=== PATIENT | male | born 1985 | race African-American/Black ===

== ENCOUNTER 2023-03-31 14:35 | Inpatient (IN) | payer OTHER ==
[2023-03-31 15:02] VITALS: BMI 26.4
[2023-03-31] MEDS ORDERED: BISMUTH SUBSALICYLATE 524 MG/30 ML PO PRN (16:10)
[2023-03-31] MEDS ORDERED: DICYCLOMINE HCL 10 MG CAPSULE PO PRN (16:10)
[2023-03-31] MEDS ORDERED: MAGNESIUM HYDROX 2400MG/30ML ORAL SUSPENSION 30 ML CUP PO PRN (16:10)
[2023-03-31] MEDS ORDERED: IBUPROFEN 600 MG TABLET (FP) PO PRN (16:10)
[2023-03-31] MEDS ORDERED: BENZOCAINE/MENTHOL (CHLORASEPTIC ) LOZENGE MM PRN (16:10)
[2023-03-31] MEDS ORDERED: POLYETHYLENE GLYCOL (HEALTHYLAX) 3350 17 GM PACKET PO PRN (16:10)
[2023-03-31] MEDS ORDERED: ONDANSETRON *ODT* 4 MG TABLET SL PRN (16:10)
[2023-03-31] MEDS ORDERED: guaiFENesin 600 MG TABLET.ER (FP) PO PRN (16:10)
[2023-03-31] MEDS ORDERED: ACETAMINOPHEN 325 MG TABLET (FP) PO PRN (16:10)
[2023-03-31] MEDS ORDERED: MAG HYDROX/AL HYDROX/SIMETH 30 ML UNIT-DOSE CUP PO PRN (16:10)
[2023-03-31] MEDS ORDERED: NICOTINE POLACRILEX 2 MG GUM BUC PRN (16:10)
[2023-03-31] MEDS ORDERED: NALOXONE HCL 0.4 MG/ML VIAL IM PRN (16:10)
[2023-03-31] MEDS ORDERED: IBUPROFEN 400 MG TABLET (FP) PO PRN (16:10)
[2023-03-31] MEDS ORDERED: NALOXONE HCL (KLOXXADO) 8 MG SPRAY NS PRN (16:10)
[2023-03-31] MEDS ORDERED: BENZONATATE 200 MG CAPSULE PO PRN (16:10)
[2023-03-31] MEDS ORDERED: LOPERAMIDE HCL 2 MG CAPSULE PO PRN (16:10)
[2023-03-31] MEDS ORDERED: cloNIDine HCL 0.1 MG TABLET PO ONE (18:18)
[2023-03-31] MEDS: hydrOXYzine PAMOATE 25 MG CAPSULE (FP) PO PRN (22:12)
[2023-03-31] MEDS: THIAMINE HCL 100 MG TABLET (FP) PO SCH (22:12)
[2023-03-31] MEDS: MELATONIN 5 MG TABLETS PO SCH (22:12)
[2023-03-31] MEDS: METHOCARBAMOL 500 MG TABLET PO PRN (22:13)
[2023-04-01] MEDS: cloNIDine HCL 0.1 MG TABLET PO SCH ×2 (06:09→17:29)
[2023-04-01] MEDS: NICOTINE 14 MG/24 HOURS TOPICAL PATCH TD SCH (09:38)
[2023-04-01] MEDS: PRENATAL VITAMINS W/ FOLIC ACID TABLET (FP) PO SCH (09:39)
[2023-04-01] MEDS: amLODIPine BESYLATE 10 MG TABLET (FP) PO SCH (09:39)
[2023-04-01 11:38] LABS: CHLORIDE 108 mmol/L (98-107); POTASSIUM 4.1 mmol/L (3.5-5.1); SODIUM 138 mmol/L (136-145)
[2023-04-01 11:42] LABS: ALBUMIN 3.4 g/dl (3.4-5.0); ANION GAP 4 mmol/L (4-13); BLOOD UREA NITROGEN 13.5 mg/dL (7-18); CO2 27 mmol/L (21-32)
[2023-04-01 11:45] LABS: GLUCOSE,RANDOM 86 mg/dL (74-106); SGOT/AST 18 U/L (15-37); SGPT/ALT 26 U/L (13-61)
[2023-04-01 11:46] LABS: BILIRUBIN,TOTAL 0.4 mg/dL (0.2-1)
[2023-04-01 11:48] LABS: TOT PROT 7.2 g/dl (6.4-8.2)
[2023-04-01 11:49] LABS: ALK PHOS 40 U/L (45-117)
[2023-04-01 12:17] LABS: HEMATOCRIT 38.9 % (35.4-49); HEMOGLOBIN 13.1 GM/dL (11.7-16.9); MCH 28.5 pg (25.7-33.7); MCHC 33.8 g/dl (32.0-35.9); MEAN CELL VOLUME 84.3 fl (80-96); MEAN PLT VOLUME 9.5 fl (7.5-11.1); PLATELET COUNT 281 10^3/uL (134-434); RBC 4.61 M/mm3 (4.00-5.60); RDW 16.1 % (11.9-15.9); WHITE BLOOD COUNT 8.4 K/mm3 (4.0-10.0)
[2023-04-01] MEDS: MELATONIN 5 MG TABLETS PO SCH (22:15)
[2023-04-01] MEDS: BENZTROPINE MESYLATE 1 MG TABLET PO SCH (22:15)
[2023-04-01] MEDS: METHOCARBAMOL 500 MG TABLET PO PRN (22:17)
[2023-04-01] MEDS: ATORVASTATIN CA 10 MG TABLET (FP) PO SCH (22:17)
[2023-04-01] MEDS: QUEtiapine FUMARATE 100 MG TABLET (FP) PO SCH (22:17)
[2023-04-01] MEDS: hydrOXYzine PAMOATE 25 MG CAPSULE (FP) PO PRN (22:17)
[2023-04-01] MEDS: THIAMINE HCL 100 MG TABLET (FP) PO SCH (22:17)
[2023-04-02] MEDS: cloNIDine HCL 0.1 MG TABLET PO SCH ×2 (06:04→17:37)
[2023-04-02] MEDS: amLODIPine BESYLATE 10 MG TABLET (FP) PO SCH (10:07)
[2023-04-02] MEDS: CHOLECALCIFEROL (VIT D3) 1,000 UNIT (25 MCG) TABLET PO SCH (10:07)
[2023-04-02] MEDS: QUEtiapine FUMARATE 100 MG TABLET (FP) PO SCH ×2 (10:07→22:09)
[2023-04-02] MEDS: BENZTROPINE MESYLATE 1 MG TABLET PO SCH ×2 (10:07→22:09)
[2023-04-02] MEDS: PRENATAL VITAMINS W/ FOLIC ACID TABLET (FP) PO SCH (10:07)
[2023-04-02] MEDS: NICOTINE 14 MG/24 HOURS TOPICAL PATCH TD SCH (10:07)
[2023-04-02] MEDS: SERTRALINE HCL 50 MG TABLET (FP) PO SCH (10:08)
[2023-04-02] MEDS: MELATONIN 5 MG TABLETS PO SCH (22:09)
[2023-04-02] MEDS: ATORVASTATIN CA 10 MG TABLET (FP) PO SCH (22:09)
[2023-04-02] MEDS: THIAMINE HCL 100 MG TABLET (FP) PO SCH (22:09)
[2023-04-03] MEDS: cloNIDine HCL 0.1 MG TABLET PO SCH (05:22)
[2023-04-03 05:50] VITALS: RESP 17
[2023-04-03] MEDS: PRENATAL VITAMINS W/ FOLIC ACID TABLET (FP) PO SCH (10:09)
[2023-04-03] MEDS: amLODIPine BESYLATE 10 MG TABLET (FP) PO SCH (10:10)
[2023-04-03] MEDS: BENZTROPINE MESYLATE 1 MG TABLET PO SCH (10:10)
[2023-04-03] MEDS: hydrOXYzine PAMOATE 25 MG CAPSULE (FP) PO PRN (10:11)
[2023-04-03] MEDS: METHOCARBAMOL 500 MG TABLET PO PRN (10:11)
[2023-04-03] MEDS: SERTRALINE HCL 50 MG TABLET (FP) PO SCH (10:11)
[2023-04-03] MEDS: QUEtiapine FUMARATE 100 MG TABLET (FP) PO SCH (10:12)
[2023-04-03] MEDS: NICOTINE 14 MG/24 HOURS TOPICAL PATCH TD SCH (10:12)
[2023-04-03] MEDS: CHOLECALCIFEROL (VIT D3) 1,000 UNIT (25 MCG) TABLET PO SCH (10:14)
[2023-04-03 14:00] VITALS: BP 134/100; PULSE 89; TEMP 98.2
== END 2023-04-03 14:33 | disposition other institution (70) | DRG 775 ==
LOC: YASAS 14:35 → Y3N 16:37
PROVIDERS: ADMIT Allergy & Immunology; ATTEND Allergy & Immunology
PROC: HZ2ZZZZ Detoxification Services for Substance Abuse Treatment (ICD-10-PCS; principal; 2023-03-31)
DX: F10.20 Alcohol dependence, uncomplicated (principal); F12.20 Cannabis dependence, uncomplicated; F17.210 Nicotine dependence, cigarettes, uncomplicated; F20.9 Schizophrenia, unspecified; E78.2 Mixed hyperlipidemia; I10 Essential (primary) hypertension; Z28.310 Unvaccinated for COVID-19; Z28.9 Immunization not carried out for unspecified reason
CPT/HCPCS: 36415; 80053; 80307; 85027; 86780; 87635; 93005; 93010

== ENCOUNTER 2023-04-03 14:44 | Inpatient (IN) | payer OTHER ==
[2023-04-03] MEDS ORDERED: NALOXONE HCL 0.4 MG/ML VIAL IVPUSH PRN (14:59)
[2023-04-03] MEDS ORDERED: IBUPROFEN 400 MG TABLET (FP) PO PRN (14:59)
[2023-04-03] MEDS ORDERED: AMMONIUM LACTATE 12% LOTION 225 GM BOTTLE TP PRN (14:59)
[2023-04-03] MEDS ORDERED: METHOCARBAMOL 500 MG TABLET PO PRN (14:59)
[2023-04-03] MEDS ORDERED: MAGNESIUM HYDROX 2400MG/30ML ORAL SUSPENSION 30 ML CUP PO PRN (14:59)
[2023-04-03] MEDS ORDERED: LOPERAMIDE HCL 2 MG CAPSULE PO PRN (14:59)
[2023-04-03] MEDS ORDERED: NALOXONE HCL (KLOXXADO) 8 MG SPRAY NS PRN (14:59)
[2023-04-03] MEDS ORDERED: BENZOCAINE/MENTHOL (CHLORASEPTIC ) LOZENGE MM PRN (14:59)
[2023-04-03] MEDS ORDERED: IBUPROFEN 600 MG TABLET (FP) PO PRN (14:59)
[2023-04-03] MEDS ORDERED: MAG HYDROX/AL HYDROX/SIMETH 30 ML UNIT-DOSE CUP PO PRN (14:59)
[2023-04-03] MEDS ORDERED: NICOTINE POLACRILEX 4 MG GUM BUC PRN (14:59)
[2023-04-03] MEDS ORDERED: ACETAMINOPHEN 325 MG TABLET (FP) PO PRN (14:59)
[2023-04-03] MEDS ORDERED: POLYETHYLENE GLYCOL (HEALTHYLAX) 3350 17 GM PACKET PO PRN (14:59)
[2023-04-03] MEDS ORDERED: guaiFENesin 600 MG TABLET.ER (FP) PO PRN (14:59)
[2023-04-03] MEDS ORDERED: BENZONATATE 200 MG CAPSULE PO PRN (14:59)
[2023-04-03] MEDS: TUBERCULIN PPD 5 TU/0.1ML VIAL ID ONE (17:03)
[2023-04-03] MEDS: THIAMINE HCL 100 MG TABLET (FP) PO SCH (21:15)
[2023-04-03] MEDS: MELATONIN 5 MG TABLETS PO SCH (21:15)
[2023-04-04] MEDS: hydrOXYzine PAMOATE 25 MG CAPSULE (FP) PO PRN (06:09)
[2023-04-04] MEDS: ATORVASTATIN CA 10 MG TABLET (FP) PO SCH (10:07)
[2023-04-04] MEDS: PRENATAL VITAMINS W/ FOLIC ACID TABLET (FP) PO SCH (10:07)
[2023-04-04] MEDS: amLODIPine BESYLATE 10 MG TABLET (FP) PO SCH (10:07)
[2023-04-04] MEDS: NICOTINE 7 MG/24 HOURS TOPICAL PATCH TD SCH (10:08)
[2023-04-04] MEDS: LACTULOSE 20 GM/30 ML UDC (FOR ORAL USE ONLY) PO SCH (16:07)
[2023-04-04] MEDS: QUEtiapine FUMARATE 200 MG TABLET PO SCH (21:15)
[2023-04-04] MEDS: BENZTROPINE MESYLATE 1 MG TABLET PO SCH (21:16)
[2023-04-05] MEDS: SERTRALINE HCL 50 MG TABLET (FP) PO SCH (09:59)
[2023-04-08] MEDS: CHOLECALCIFEROL (VIT D3) 1,000 UNIT (25 MCG) TABLET PO SCH (10:33)
[2023-04-08] MEDS: cloNIDine HCL 0.1 MG TABLET PO PRN (10:33)
[2023-04-15] MEDS: fluPHENAZine DECANOATE 125 MG/5ML VIAL IM ONE (15:17)
[2023-04-18] MEDS: NICOTINE 14 MG/24 HOURS TOPICAL PATCH TD SCH (11:00)
[2023-04-29] MEDS: fluPHENAZine DECANOATE 125 MG/5ML VIAL IM ONE (11:12)
[2023-04-30 09:15] VITALS: RESP 18
[2023-05-01 06:56] VITALS: TEMP 97.1
[2023-05-01 09:10] VITALS: BP 132/90; PULSE 108
== END 2023-05-01 10:10 | disposition home or self-care (01) | DRG 772 ==
LOC: YASAS 14:44 → Y3W 14:46
PROVIDERS: ADMIT Allergy & Immunology; ATTEND Psychiatry & Neurology Pain Medicine
PROC: HZ42ZZZ Group Counseling for Substance Abuse Treatment, Cognitive-Behavioral (ICD-10-PCS; principal; 2023-04-03)
DX: F10.20 Alcohol dependence, uncomplicated (principal); F12.20 Cannabis dependence, uncomplicated; F17.210 Nicotine dependence, cigarettes, uncomplicated; F20.9 Schizophrenia, unspecified; E72.20 Disorder of urea cycle metabolism, unspecified; I10 Essential (primary) hypertension
CPT/HCPCS: 36415; 82140; 86803

== ENCOUNTER 2024-01-18 18:26 | Inpatient (IN) | payer OTHER ==
[2024-01-18 19:18] VITALS: BMI 24.0
[2024-01-18] MEDS ORDERED: IBUPROFEN 400 MG TABLET (FP) PO PRN (21:00)
[2024-01-18] MEDS ORDERED: POLYETHYLENE GLYCOL (HEALTHYLAX) 3350 17 GM PACKET PO PRN (21:00)
[2024-01-18] MEDS ORDERED: BENZONATATE 200 MG CAPSULE PO PRN (21:00)
[2024-01-18] MEDS ORDERED: IBUPROFEN 600 MG TABLET (FP) PO PRN (21:00)
[2024-01-18] MEDS ORDERED: MAGNESIUM HYDROX 2400MG/30ML ORAL SUSPENSION 30 ML CUP PO PRN (21:00)
[2024-01-18] MEDS ORDERED: DICYCLOMINE HCL 10 MG CAPSULE PO PRN (21:00)
[2024-01-18] MEDS ORDERED: NICOTINE POLACRILEX 2 MG LOZENGE BC PRN (21:00)
[2024-01-18] MEDS ORDERED: guaiFENesin 600 MG TABLET.ER (FP) PO PRN (21:00)
[2024-01-18] MEDS ORDERED: NALOXONE (NARCAN) HCL 4 MG/0.1 ML SPRAY NS PRN (21:00)
[2024-01-18] MEDS ORDERED: BISMUTH SUBSALICYLATE 524 MG/30 ML PO PRN (21:00)
[2024-01-18] MEDS ORDERED: MAG HYDROX/AL HYDROX/SIMETH 30 ML UNIT-DOSE CUP PO PRN (21:00)
[2024-01-18] MEDS ORDERED: BENZOCAINE/MENTHOL (CHLORASEPTIC ) LOZENGE MM PRN (21:00)
[2024-01-18] MEDS ORDERED: LOPERAMIDE HCL 2 MG CAPSULE PO PRN (21:00)
[2024-01-18] MEDS ORDERED: NALOXONE (NYS OPIOID OVERDOSE PROGRAM) 4 MG/0.1 ML SPRAY NS PRN (21:00)
[2024-01-18] MEDS ORDERED: ONDANSETRON *ODT* 4 MG TABLET SL PRN (21:00)
[2024-01-18] MEDS ORDERED: ACETAMINOPHEN 325 MG TABLET (FP) PO PRN (21:00)
[2024-01-18] MEDS: ATORVASTATIN CA 10 MG TABLET (FP) PO SCH (22:43)
[2024-01-18] MEDS: MELATONIN 5 MG TABLETS PO SCH (22:43)
[2024-01-18] MEDS: THIAMINE 100 MG TABLET PO SCH (22:43)
[2024-01-19] MEDS ORDERED: chlordiazePOXIDE HCL 25 MG CAPSULE PO PRN (09:10)
[2024-01-19] MEDS: amLODIPine BESYLATE 10 MG TABLET (FP) PO SCH (10:30)
[2024-01-19] MEDS: chlordiazePOXIDE HCL 10 MG CAPSULE PO SCH (10:30)
[2024-01-19] MEDS: PRENATAL VITAMINS W/ FOLIC ACID TABLET (FP) PO SCH (10:30)
[2024-01-19] MEDS: NICOTINE 14 MG/24 HOURS TOPICAL PATCH TD SCH (10:31)
[2024-01-19 11:14] LABS: HEMATOCRIT 37.8 % (35.4-49); MCH 29.4 pg (25.7-33.7); MCHC 34.3 g/dl (32.0-35.9); MEAN CELL VOLUME 85.7 fl (80-96); MEAN PLT VOLUME 10.9 fl (7.5-11.1); PLATELET COUNT 191 10^3/uL (134-434); RBC 4.41 M/mm3 (4.00-5.60); RDW 13.9 % (11.9-15.9); WHITE BLOOD COUNT 8.5 K/mm3 (4.0-10.0)
[2024-01-19 11:23] LABS: CHLORIDE 101 mmol/L (98-107); POTASSIUM 4.1 mmol/L (3.5-5.1); SODIUM 137 mmol/L (136-145)
[2024-01-19 11:31] LABS: ALBUMIN 3.4 g/dl (3.4-5.0); ANION GAP 5 mmol/L (4-13); BLOOD UREA NITROGEN 19.9 mg/dL (7-18); CALCIUM 9.2 mg/dL (8.5-10.1); CO2 31 mmol/L (21-32); GLUCOSE,RANDOM 86 mg/dL (74-106)
[2024-01-19] MEDS: DOXYCYCLINE HYCLATE 100 MG TABLET PO SCH (11:32)
[2024-01-19 11:34] LABS: CREATININE 0.9 mg/dL (0.55-1.3); SGOT/AST 29 U/L (15-37); SGPT/ALT 39 U/L (13-61)
[2024-01-19 11:36] LABS: BILIRUBIN,TOTAL 0.2 mg/dL (0.2-1); TOT PROT 6.7 g/dl (6.4-8.2)
[2024-01-19 11:37] LABS: ALK PHOS 54 U/L (45-117)
[2024-01-19] MEDS: METHOCARBAMOL 500 MG TABLET PO PRN (20:35)
[2024-01-19] MEDS: hydrOXYzine PAMOATE 25 MG CAPSULE (FP) PO PRN (20:35)
[2024-01-19] MEDS: BENZTROPINE MESYLATE 1 MG TABLET PO SCH (21:06)
[2024-01-19] MEDS: cloNIDine HCL 0.1 MG TABLET PO SCH (21:06)
[2024-01-19] MEDS: QUEtiapine FUMARATE 200 MG TABLET PO SCH (21:06)
[2024-01-19] MEDS: chlordiazePOXIDE HCL 10 MG CAPSULE PO PRN (21:07)
[2024-01-20] MEDS: chlordiazePOXIDE HCL 10 MG CAPSULE PO SCH (05:53)
[2024-01-20] MEDS: SERTRALINE HCL 50 MG TABLET (FP) PO SCH (09:37)
[2024-01-21] MEDS: chlordiazePOXIDE HCL 10 MG CAPSULE PO ONE (05:55)
[2024-01-21] MEDS: fluPHENAZine DECANOATE 125 MG/5ML VIAL IM ONE (10:12)
[2024-01-21 13:34] VITALS: BP 116/81; PULSE 74; RESP 19; TEMP 98
== END 2024-01-21 14:20 | disposition other institution (70) | DRG 775 ==
LOC: YASAS 18:26 → Y3N 21:52
PROVIDERS: ADMIT Allergy & Immunology; ATTEND Surgery
PROC: HZ2ZZZZ Detoxification Services for Substance Abuse Treatment (ICD-10-PCS; principal; 2024-01-18)
DX: F10.230 Alcohol dependence with withdrawal, uncomplicated (principal); F12.20 Cannabis dependence, uncomplicated; F17.210 Nicotine dependence, cigarettes, uncomplicated; F20.9 Schizophrenia, unspecified; E78.2 Mixed hyperlipidemia; I10 Essential (primary) hypertension
CPT/HCPCS: 36415; 80053; 80305; 80307; 85027; 86780; 87811